=== PATIENT | female | born 1960 | race African-American/Black ===

== ENCOUNTER 2017-07-15 09:42 | Emergency (ER) | payer MEDICAID ==
[~2017-07-15] VITALS: Ht 165.1 cm; Wt 71.0 kg
[~2017-07-15 09:42] MED LIST: CARB200T PO; DIVA-18 PO; DIVA500T3 PO; FOLI-43 PO; KETO5DRO80 EACHEYE; LACO200T2 PO; LEVO500T2 PO; PRED5DRO7 EACHEYE; TEGXR2 PO
[2017-07-15] MEDS ORDERED: LACTATED RINGERS 1,000 ML IV STA (10:25)
[2017-07-15] MEDS ORDERED: ONDANSETRON HCL 4MG/2ML VIAL IV STA (10:25)
[2017-07-15 10:56] LABS: CLARITY URINE CLEAR (CLEAR); COLOR URINE YELLOW (YELLOW); GLUCOSE URINE NEGATIVE (NEGATIVE); KETONES URINE NEGATIVE (NEGATIVE); LEUKOCYTE ESTERASE URINE 1+ (NEGATIVE); NITRITE URINE NEGATIVE (NEGATIVE); OCCULT BLOOD URINE NEGATIVE (NEGATIVE); PROTEIN URINE TRACE (NEGATIVE); SPECIFIC GRAVITY URINE 1.034 (1.005-1.030); UROBILINOGEN URINE 0.2 E.U./dL (0.2-1.0)
[2017-07-15 12:09] LABS: INR 1.2; PROTHROMBIN TIME 12.1 sec (9.4-11.6)
[2017-07-15 12:15] LABS: CARBON DIOXIDE 25 mEq/L (21-32); CHLORIDE 106 mEq/L (98-107)
[2017-07-15 12:51] LABS: BASOPHILS % 0.4 % (0.0-2.0); EOSINOPHILS % 0.8 % (0.0-5.0); HEMATOCRIT. 36.4 % (36.0-48.0); HEMOGLOBIN. 12.1 g/dL (12.0-16.0); LYMPHOCYTES % 22.3 % (20.0-50.0); MEAN CORPUSCULAR HEMOGLOBIN 30.7 pg (28.0-32.0); MEAN CORPUSCULAR VOLUME 92.4 fL (81.0-99.0); MEAN PLATELET VOLUME 9.4 fl (7.4-10.4); MONOCYTES % 4.7 % (2.0-8.0); NEUTROPHILS % 71.8 % (40.0-76.0); PLATELET 191 x1000/uL (130-400); RED BLOOD CELL COUNT 3.94 mill/uL (4.2-5.4)
[2017-07-15] MEDS ORDERED: PROCHLORPERAZINE 10MG/2ML VIAL IV STA (12:54)
[2017-07-15 14:02] VITALS: BP 104/58
== END 2017-07-15 14:17 | disposition home or self-care (01) ==
LOC: ER 10:45
DX: R10.13 Epigastric pain (principal); R11.2 Nausea with vomiting, unspecified; I69.354 Hemiplegia and hemiparesis following cerebral infarction affecting left non-dominant side; G40.909 Epilepsy, unspecified, not intractable, without status epilepticus; E78.00 Pure hypercholesterolemia, unspecified; Z88.6 Allergy status to analgesic agent
CPT/HCPCS: 36415; 70450; 80053; 81001; 83605; 83690; 85025; 85610; 93005; 96361; 96374; 96375; 99285; J0780; J2405; J7120; Z7610

== ENCOUNTER 2018-10-14 10:21 | Emergency (ER) | payer MEDICAID ==
[~2018-10-14] VITALS: Ht 160 cm; Wt 62.0 kg
[2018-10-14] MEDS ORDERED: IBUPROFEN 600MG TABLET PO ONE (15:00)
[2018-10-14 15:11] VITALS: BP 105/59
== END 2018-10-14 16:56 | disposition home or self-care (01) ==
LOC: ER 10:21
DX: S62.394A Other fracture of fourth metacarpal bone, right hand, initial encounter for closed fracture (principal); W01.0XXA Fall on same level from slipping, tripping and stumbling without subsequent striking against object, initial encounter; Y93.89 Activity, other specified; Y92.89 Other specified places as the place of occurrence of the external cause
CPT/HCPCS: 29125; 73130; 99283

== ENCOUNTER 2019-05-20 14:42 | Inpatient (IN) | payer MEDICAID ==
[~2019-05-20] VITALS: Ht 215.9 cm; Wt 72.6 kg
[2019-05-20] MEDS ORDERED: SODIUM CHLORIDE 0.9% 1,000 ML IV ONE (15:26)
[2019-05-20 15:38] LABS: BASOPHILS % 0.6 % (0.0-2.0); EOSINOPHILS % 9.1 % (0.0-5.0); HEMATOCRIT. 34.9 % (36.0-48.0); HEMOGLOBIN. 11.6 g/dL (12.0-16.0); MEAN CORPUSCULAR VOLUME 93.2 fL (81.0-99.0); MEAN PLATELET VOLUME 9.4 fl (7.4-10.4); MONOCYTES % 9.9 % (2.0-8.0); NEUTROPHILS % 37.4 % (40.0-76.0); PLATELET 206 x1000/uL (130-400); RED BLOOD CELL COUNT 3.74 mill/uL (4.2-5.4)
[2019-05-20 15:41] LABS: CLARITY URINE CLOUDY (CLEAR); COLOR URINE YELLOW (YELLOW); KETONES URINE TRACE (NEGATIVE); LEUKOCYTE ESTERASE URINE 1+ (NEGATIVE); NITRITE URINE NEGATIVE (NEGATIVE); OCCULT BLOOD URINE TRACE (NEGATIVE); PH URINE 5.5 (4.5-8.0); PROTEIN URINE 1+ (NEGATIVE); SPECIFIC GRAVITY URINE 1.027 (1.005-1.030)
[2019-05-20 15:42] LABS: CHLORIDE 105 mEq/L (98-107)
[2019-05-20 15:44] LABS: INR 1.1; PARTIAL THROMBOPLASTIN TIME 27.2 sec (23.4-31.0); PROTHROMBIN TIME 11.5 sec (9.6-11.0)
[2019-05-20 15:46] LABS: ETHANOL BLOOD < 10 mg/dL
[2019-05-20 15:51] LABS: CARBAMAZEPINE 2.3 ug/mL (4-12)
[2019-05-20 15:59] LABS: *AMPHETAMINES SCREEN URINE NEGATIVE (NEGATIVE); *BARBITURATES SCREEN URINE NEGATIVE (NEGATIVE); *BENZODIAZEPINES SCREEN URINE NEGATIVE (NEGATIVE); *COCAINE SCREEN URINE NEGATIVE (NEGATIVE)
[2019-05-20 16:00] LABS: CANNABINOID URINE SCREEN NEGATIVE (NEGATIVE); METHADONE URINE SCREEN NEGATIVE (NEGATIVE); OPIATES URINE SCREEN NEGATIVE (NEGATIVE); PHENCYCLIDINE URINE SCREEN NEGATIVE (NEGATIVE)
[2019-05-20] MEDS ORDERED: VALPROATE SODIUM 500 MG in SODIUM CHLORIDE 0.9% 100 ML IV STA (16:23)
[2019-05-20] MEDS ORDERED: CEFTRIAXONE 1 G PREMIX 50 ML IV ONE (16:30)
[2019-05-20] MEDS ORDERED: CARBAMAZEPINE 100MG TABLET CHEW PO ONE (16:30)
[2019-05-20] MEDS ORDERED: ASPIRIN 81MG TABLET PO ONE (17:00)
[2019-05-20] MEDS ORDERED: NON FORMULARY PATIENT HOME MED XX SCH (20:00)
[2019-05-20] MEDS ORDERED: LORAZEPAM 2MG/ML CPJ IV PRN (20:00)
[2019-05-20] MEDS ORDERED: DIPHENHYDRAMINE 50MG/ML VIAL IV PRN (20:00)
[2019-05-20 22:10] VITALS: BP 104/60
[2019-05-20] MEDS: CARBAMAZEPINE 200MG TABLET PO SCH (23:35)
[2019-05-20] MEDS: DIVALPROEX SODIUM 250MG DR TABLET PO SCH (23:35)
[2019-05-21 04:00] VITALS: BP 123/49
[2019-05-21] MEDS ORDERED: SODIUM CHLORIDE 0.9% INJ 3ML FLUSH IVF SCH (06:00)
[2019-05-21] MEDS ORDERED: ACETAMINOPHEN 325MG TABLET PO PRN (08:15)
[2019-05-21 08:27] VITALS: BP 119/50
[2019-05-21] MEDS: DIVALPROEX SODIUM 250MG DR TABLET PO SCH (08:27)
[2019-05-21] MEDS: CARBAMAZEPINE 200MG TABLET PO SCH (08:27)
[2019-05-21 12:00] VITALS: BP 121/57
[2019-05-21 15:51] VITALS: BP 94/50
[2019-05-21 16:00] VITALS: BP 94/50
== END 2019-05-21 16:53 | disposition home or self-care (01) | DRG 53 ==
LOC: ER 14:42 → ENRESERV 20:34 → 8WST 22:06
PROVIDERS: ADMIT Internal Medicine; ATTEND Internal Medicine
DX: G40.909 Epilepsy, unspecified, not intractable, without status epilepticus (principal); I69.354 Hemiplegia and hemiparesis following cerebral infarction affecting left non-dominant side; H40.9 Unspecified glaucoma; Z88.5 Allergy status to narcotic agent; Z88.8 Allergy status to other drugs, medicaments and biological substances; Z79.899 Other long term (current) drug therapy
CPT/HCPCS: 36415; 71045; 80156; 80165; 80305; 80320; 83880; 84484; 93005; 96374; 99285; J0696; J3490; J7030; J7050; G0480

== ENCOUNTER 2020-01-02 17:54 | Inpatient (IN) | payer MEDICAID ==
[~2020-01-02] VITALS: Ht 160 cm; Wt 59.9 kg
[2020-01-02] MEDS ORDERED: VALPROIC ACID 250MG CAPSULE PO ONE (23:15)
[2020-01-03 00:42] LABS: BASOPHILS % 0.7 % (0.0-2.0); EOSINOPHILS % 2.7 % (0.0-5.0); MEAN CORPUSCULAR HEMOGLOBIN 31.8 pg (28.0-32.0); MEAN CORPUSCULAR VOLUME 92.8 fL (81.0-99.0); MEAN PLATELET VOLUME 9.8 fl (7.4-10.4); MONOCYTES % 8.9 % (2.0-8.0); NEUTROPHILS % 44.7 % (40.0-76.0); PLATELET 239 x1000/uL (130-400); RED BLOOD CELL COUNT 3.77 mill/uL (4.2-5.4); RED CELL DISTRIBUTION WIDTH 14.1 % (11.6-14.6)
[2020-01-03 00:53] LABS: CHLORIDE 104 mEq/L (98-107)
[2020-01-03 00:57] LABS: ETHANOL BLOOD < 10 mg/dL
[2020-01-03 04:26] LABS: CLARITY URINE CLEAR (CLEAR); COLOR URINE YELLOW (YELLOW); KETONES URINE NEGATIVE (NEGATIVE); LEUKOCYTE ESTERASE URINE 1+ (NEGATIVE); NITRITE URINE NEGATIVE (NEGATIVE); OCCULT BLOOD URINE NEGATIVE (NEGATIVE); PH URINE 6.5 (4.5-8.0); PROTEIN URINE NEGATIVE (NEGATIVE); SPECIFIC GRAVITY URINE 1.033 (1.005-1.030)
[2020-01-03 04:48] LABS: *AMPHETAMINES SCREEN URINE NEGATIVE (NEGATIVE); *BARBITURATES SCREEN URINE NEGATIVE (NEGATIVE)
[2020-01-03 04:49] LABS: *BENZODIAZEPINES SCREEN URINE NEGATIVE (NEGATIVE); *COCAINE SCREEN URINE NEGATIVE (NEGATIVE); CANNABINOID URINE SCREEN NEGATIVE (NEGATIVE); METHADONE URINE SCREEN NEGATIVE (NEGATIVE); OPIATES URINE SCREEN NEGATIVE (NEGATIVE); PHENCYCLIDINE URINE SCREEN NEGATIVE (NEGATIVE)
[2020-01-03] MEDS ORDERED: IOHEXOL-350 100 ML BOTTLE ONE ×2 (07:29→09:54)
[2020-01-03] MEDS ORDERED: LORAZEPAM 2MG/ML CPJ ONE (09:09)
[2020-01-03] MEDS ORDERED: LEVETIRACETAM 1000MG/100ML 100 ML IV ONE (09:15)
[2020-01-03] MEDS ORDERED: LORAZEPAM 2MG/ML CPJ IV ONE (09:15)
[2020-01-03] MEDS ORDERED: NON FORMULARY PATIENT HOME MED XX SCH (14:00)
[2020-01-03] MEDS: VALPROIC ACID 250MG CAPSULE PO SCH (15:22)
[2020-01-03] MEDS ORDERED: ACETAMINOPHEN 325MG TABLET PO PRN (20:58)
[2020-01-03] MEDS ORDERED: LEVETIRACETAM 500 MG in SODIUM CHLORIDE 0.9% 100 ML IV SCH (21:00)
[2020-01-03 22:52] VITALS: BP 108/48
[2020-01-04] VITALS: BP 108/48
[2020-01-04] MEDS: CARBAMAZEPINE 200MG TABLET PO SCH ×3 (00:03→22:05)
[2020-01-04] MEDS: VALPROIC ACID 250MG CAPSULE PO SCH ×4 (00:46→22:05)
[2020-01-04 04:00] VITALS: BP 95/53
[2020-01-04] MEDS: LEVETIRACETAM 500MG PREMIX 100 ML IV SCH ×3 (05:31→22:37)
[2020-01-04 08:00] VITALS: BP 108/47
[2020-01-04] MEDS: VIMPAT 200 MG PO SCH ×2 (08:42→16:04)
[2020-01-04 12:00] VITALS: BP 105/52
[2020-01-04 16:00] VITALS: BP 132/54
[2020-01-04 16:03] LABS: BASOPHILS % 0.6 % (0.0-2.0); EOSINOPHILS % 5.4 % (0.0-5.0); LYMPHOCYTES % 36.7 % (20.0-50.0); MEAN CORPUSCULAR HEMOGLOBIN 31.7 pg (28.0-32.0); MEAN CORPUSCULAR VOLUME 92.8 fL (81.0-99.0); MEAN PLATELET VOLUME 9.8 fl (7.4-10.4); MONOCYTES % 10.5 % (2.0-8.0); NEUTROPHILS % 46.8 % (40.0-76.0); PLATELET 243 x1000/uL (130-400); RED BLOOD CELL COUNT 3.77 mill/uL (4.2-5.4); RED CELL DISTRIBUTION WIDTH 13.8 % (11.6-14.6)
[2020-01-04 16:30] LABS: CHLORIDE 106 mEq/L (98-107)
[2020-01-04 20:00] VITALS: BP 121/72
[2020-01-05] VITALS: BP 107/58
[2020-01-05 04:00] VITALS: BP 106/61
[2020-01-05] MEDS: VALPROIC ACID 250MG CAPSULE PO SCH ×2 (05:43→13:30)
[2020-01-05] MEDS: CARBAMAZEPINE 200MG TABLET PO SCH (08:43)
[2020-01-05] MEDS: LEVETIRACETAM 500MG PREMIX 100 ML IV SCH (08:44)
[2020-01-05] MEDS: VIMPAT 200 MG PO SCH (08:53)
[2020-01-05 14:55] VITALS: BP 124/62
== END 2020-01-05 16:22 | disposition home or self-care (01) | DRG 53 ==
LOC: ER 17:54 → EDBEDREQSVC 01-03 16:45 → SUPCPDRO 01-03 16:46 → ENRESERV 01-03 21:17 → 7WST 01-03 22:24
PROVIDERS: ADMIT Internal Medicine; ATTEND Internal Medicine
DX: G40.909 Epilepsy, unspecified, not intractable, without status epilepticus (principal); I69.354 Hemiplegia and hemiparesis following cerebral infarction affecting left non-dominant side; I10 Essential (primary) hypertension; Z91.14 Patient's other noncompliance with medication regimen; Z79.899 Other long term (current) drug therapy; Z98.49 Cataract extraction status, unspecified eye
CPT/HCPCS: 36415; 70496; 70498; 70551; 71045; 80053; 80165; 80305; 80320; 81003; 82962; 83880; 84484; 85025; 93005; 96365; 96375; 99285; J1953; J2060; Q9967; G0480

== ENCOUNTER 2020-06-12 12:46 | Inpatient (IN) | payer MEDICAID ==
[~2020-06-12] VITALS: Ht 160 cm; Wt 79.4 kg
[2020-06-12] MEDS ORDERED: SODIUM CHLORIDE 0.9% 1,000 ML IV ONE (14:44)
[2020-06-12] MEDS ORDERED: LORAZEPAM 2MG/ML CPJ IV ONE (14:45)
[2020-06-12] MEDS ORDERED: MECLIZINE 12.5MG TABLET PO ONE (14:45)
[2020-06-12 17:06] LABS: BASOPHILS % 0.8 % (0.0-2.0); EOSINOPHILS % 2.5 % (0.0-5.0); HEMATOCRIT. 36.1 % (36.0-48.0); HEMOGLOBIN. 11.7 g/dL (12.0-16.0); LYMPHOCYTES % 40.4 % (20.0-50.0); MEAN CORPUSCULAR HEMOGLOBIN 30.1 pg (28.0-32.0); MEAN CORPUSCULAR VOLUME 92.8 fL (81.0-99.0); MEAN PLATELET VOLUME 10.6 fl (7.4-10.4); MONOCYTES % 7.7 % (2.0-8.0); NEUTROPHILS % 48.6 % (40.0-76.0); PLATELET 116 x1000/uL (130-400); RED BLOOD CELL COUNT 3.89 mill/uL (4.2-5.4); RED CELL DISTRIBUTION WIDTH 14.4 % (11.6-14.6)
[2020-06-12 17:12] LABS: CHLORIDE 106 mEq/L (98-107)
[2020-06-12 17:17] LABS: INR 1.2; PROTHROMBIN TIME 12.2 sec (9.6-11.0)
[2020-06-12 18:14] LABS: CLARITY URINE CLEAR (CLEAR); COLOR URINE DARK YELLOW (YELLOW); KETONES URINE 1+ (NEGATIVE); LEUKOCYTE ESTERASE URINE TRACE (NEGATIVE); NITRITE URINE NEGATIVE (NEGATIVE); OCCULT BLOOD URINE NEGATIVE (NEGATIVE); PROTEIN URINE TRACE (NEGATIVE); SPECIFIC GRAVITY URINE 1.031 (1.005-1.030)
[2020-06-12 18:23] LABS: *AMPHETAMINES SCREEN URINE NEGATIVE (NEGATIVE); *BARBITURATES SCREEN URINE NEGATIVE (NEGATIVE); *BENZODIAZEPINES SCREEN URINE NEGATIVE (NEGATIVE); *COCAINE SCREEN URINE NEGATIVE (NEGATIVE)
[2020-06-12 18:24] LABS: CANNABINOID URINE SCREEN NEGATIVE (NEGATIVE); METHADONE URINE SCREEN NEGATIVE (NEGATIVE); OPIATES URINE SCREEN NEGATIVE (NEGATIVE); PHENCYCLIDINE URINE SCREEN NEGATIVE (NEGATIVE)
[2020-06-12 21:50] VITALS: BP 125/65
[2020-06-12] MEDS ORDERED: NON FORMULARY PATIENT HOME MED XX SCH (23:00)
[2020-06-12] MEDS ORDERED: LORAZEPAM 2MG/ML CPJ IV PRN (23:30)
[2020-06-12] MEDS ORDERED: ONDANSETRON HCL 4MG/2ML INJ IV PRN (23:30)
[2020-06-12] MEDS ORDERED: ACETAMINOPHEN 325MG TABLET PO PRN (23:30)
[2020-06-13] VITALS: BP 119/77
[2020-06-13 04:00] VITALS: BP 99/41
[2020-06-13 07:45] LABS: HEMATOCRIT 30.9 % (36.0-48.0); HEMOGLOBIN 10.4 g/dL (12.0-16.0); MEAN CORPUSCULAR HEMOGLOBIN 31.1 pg (28.0-32.0); PLATELET 185 x1000/uL (130-400); RED BLOOD CELL COUNT 3.35 mill/uL (4.2-5.4); RED CELL DISTRIBUTION WIDTH 13.8 % (11.6-14.6)
[2020-06-13 08:00] VITALS: BP 124/84
[2020-06-13 08:03] LABS: CHLORIDE 109 mEq/L (98-107)
[2020-06-13] MEDS: CARBAMAZEPINE 200MG TABLET PO SCH ×2 (08:37→17:18)
[2020-06-13] MEDS: PREDNISOLONE ACETATE 1% OPHTH DROPS 5ML EACHEYE SCH ×4 (08:37→20:20)
[2020-06-13] MEDS: FOLIC ACID 1MG TABLET PO SCH (08:37)
[2020-06-13] MEDS ORDERED: KETOROLAC TROMETHAMINE 0.4% OPHTH 5ML EACHEYE SCH (09:00)
[2020-06-13] MEDS ORDERED: POTASSIUM CHLORIDE 20MEQ TABLET SR PO SCH (09:15)
[2020-06-13] MEDS ORDERED: MECLIZINE 25MG TABLET PO PRN (09:15)
[2020-06-13] MEDS: DIVALPROEX SODIUM 500MG DR TABLET PO SCH ×2 (10:10→17:18)
[2020-06-13 12:00] VITALS: BP_SYST 122; BP_SYST 126; BP_DIAS 66; BP_DIAS 75
[2020-06-13 16:00] VITALS: BP 113/50
[2020-06-13 20:00] VITALS: BP 114/68
[2020-06-14] VITALS: BP 121/60
[2020-06-14 04:00] VITALS: BP 116/59
[2020-06-14 06:57] LABS: BASOPHILS % 0.8 % (0.0-2.0); EOSINOPHILS % 8.8 % (0.0-5.0); HEMATOCRIT. 31.1 % (36.0-48.0); HEMOGLOBIN. 10.5 g/dL (12.0-16.0); LYMPHOCYTES % 48.9 % (20.0-50.0); MEAN CORPUSCULAR HEMOGLOBIN 30.9 pg (28.0-32.0); MEAN CORPUSCULAR VOLUME 91.8 fL (81.0-99.0); MEAN PLATELET VOLUME 10.1 fl (7.4-10.4); NEUTROPHILS % 33.5 % (40.0-76.0); PLATELET 182 x1000/uL (130-400); RED BLOOD CELL COUNT 3.38 mill/uL (4.2-5.4)
[2020-06-14 07:03] LABS: CHLORIDE 107 mEq/L (98-107)
[2020-06-14 08:00] VITALS: BP 109/63
[2020-06-14] MEDS ORDERED: CLOPIDOGREL 75MG TABLET PO SCH (09:00)
[2020-06-14] MEDS ORDERED: ENOXAPARIN 40MG/0.4ML SYR SUBCUT SCH (09:00)
[2020-06-14] MEDS: FOLIC ACID 1MG TABLET PO SCH (09:32)
[2020-06-14] MEDS: CARBAMAZEPINE 200MG TABLET PO SCH ×2 (09:32→17:23)
[2020-06-14] MEDS: PREDNISOLONE ACETATE 1% OPHTH DROPS 5ML EACHEYE SCH ×4 (09:33→20:13)
[2020-06-14] MEDS: DIVALPROEX SODIUM 500MG DR TABLET PO SCH ×2 (10:21→17:23)
[2020-06-14 12:02] VITALS: BP 102/46
[2020-06-14] MEDS ORDERED: LACTULOSE 20G/30ML UDC PO NR (14:15)
[2020-06-14 16:00] VITALS: BP 118/67
[2020-06-14 20:00] VITALS: BP 116/66
[2020-06-14] MEDS: ATORVASTATIN CALCIUM 40MG TABLET PO SCH (20:13)
[2020-06-14] MEDS: DEXAMETHASONE 4MG/ML 1ML VIAL IV SCH (22:09)
[2020-06-15] VITALS: BP 114/59
[2020-06-15] MEDS: DEXAMETHASONE 4MG/ML 1ML VIAL IV SCH ×4 (03:01→21:10)
[2020-06-15 04:00] VITALS: BP 103/57
[2020-06-15] MEDS ORDERED: REGADENOSON 0.4 MG/5 ML IV SCH (09:00)
[2020-06-15 12:00] VITALS: BP 117/64
[2020-06-15] MEDS: FOLIC ACID 1MG TABLET PO SCH (13:58)
[2020-06-15] MEDS: DIVALPROEX SODIUM 500MG DR TABLET PO SCH ×2 (13:59→18:11)
[2020-06-15] MEDS: CARBAMAZEPINE 200MG TABLET PO SCH ×2 (13:59→18:11)
[2020-06-15] MEDS: PREDNISOLONE ACETATE 1% OPHTH DROPS 5ML EACHEYE SCH ×3 (14:00→21:10)
[2020-06-15 20:00] VITALS: BP 109/61
[2020-06-15] MEDS ORDERED: DEXAMETHASONE 4MG/ML 1ML VIAL IV SCH (21:00)
[2020-06-15] MEDS: ATORVASTATIN CALCIUM 40MG TABLET PO SCH (21:10)
[2020-06-16] VITALS: BP 101/68
[2020-06-16] MEDS: DEXAMETHASONE 4MG/ML 1ML VIAL IV SCH ×4 (02:49→20:52)
[2020-06-16 03:58] VITALS: BP 128/59
[2020-06-16 06:52] LABS: BASOPHILS % 0.1 % (0.0-2.0); HEMATOCRIT. 31.8 % (36.0-48.0); HEMOGLOBIN. 10.7 g/dL (12.0-16.0); LYMPHOCYTES % 11.3 % (20.0-50.0); MEAN CORPUSCULAR HEMOGLOBIN 30.8 pg (28.0-32.0); MEAN CORPUSCULAR VOLUME 91.9 fL (81.0-99.0); MEAN PLATELET VOLUME 9.8 fl (7.4-10.4); MONOCYTES % 3.1 % (2.0-8.0); NEUTROPHILS % 85.5 % (40.0-76.0); PLATELET 199 x1000/uL (130-400); RED BLOOD CELL COUNT 3.46 mill/uL (4.2-5.4); RED CELL DISTRIBUTION WIDTH 14.3 % (11.6-14.6)
[2020-06-16 07:04] LABS: CHLORIDE 105 mEq/L (98-107)
[2020-06-16 08:00] VITALS: BP 116/69
[2020-06-16] MEDS: FOLIC ACID 1MG TABLET PO SCH (08:25)
[2020-06-16] MEDS: DIVALPROEX SODIUM 500MG DR TABLET PO SCH ×2 (08:25→16:02)
[2020-06-16] MEDS: PREDNISOLONE ACETATE 1% OPHTH DROPS 5ML EACHEYE SCH ×4 (08:26→21:03)
[2020-06-16] MEDS: CARBAMAZEPINE 200MG TABLET PO SCH ×2 (08:30→16:02)
[2020-06-16] MEDS ORDERED: REGADENOSON 0.4 MG/5 ML IV ONE (09:20)
[2020-06-16 12:00] VITALS: BP 106/65
[2020-06-16 16:00] VITALS: BP_SYST 113; BP_SYST 167; BP_DIAS 49; BP_DIAS 64
[2020-06-16 20:00] VITALS: BP 106/50
[2020-06-16] MEDS: ATORVASTATIN CALCIUM 40MG TABLET PO SCH (20:52)
[2020-06-17] VITALS: BP 103/56
[2020-06-17] MEDS: DEXAMETHASONE 4MG/ML 1ML VIAL IV SCH ×4 (03:38→21:11)
[2020-06-17 04:00] VITALS: BP 100/77
[2020-06-17 08:00] VITALS: BP 116/63
[2020-06-17] MEDS: DIVALPROEX SODIUM 500MG DR TABLET PO SCH ×2 (08:56→16:14)
[2020-06-17] MEDS: CARBAMAZEPINE 200MG TABLET PO SCH ×2 (08:56→16:14)
[2020-06-17] MEDS: FOLIC ACID 1MG TABLET PO SCH (08:56)
[2020-06-17] MEDS: PREDNISOLONE ACETATE 1% OPHTH DROPS 5ML EACHEYE SCH ×4 (08:57→21:11)
[2020-06-17 12:00] VITALS: BP 129/86
[2020-06-17 16:00] VITALS: BP 129/76
[2020-06-17 20:00] VITALS: BP 109/85
[2020-06-17] MEDS: ATORVASTATIN CALCIUM 40MG TABLET PO SCH (21:11)
[2020-06-18] VITALS (44 sets, daily range): BP systolic 89–142; BP diastolic 51–80
[2020-06-18] MEDS: DEXAMETHASONE 4MG/ML 1ML VIAL IV SCH ×4 (03:57→20:04)
[2020-06-18] MEDS ORDERED: BACITRACIN 50,000 UNITS/VIAL ONE (09:19)
[2020-06-18] MEDS ORDERED: LIDOCAINE HCL/EPINEPHRINE 1%-EPI 1:100,000 20 ML VIAL ONE (09:19)
[2020-06-18] MEDS ORDERED: NORMAL SALINE 0.9% 10 ML SYR ONE (09:19)
[2020-06-18] MEDS ORDERED: THROMBIN (BOVINE) 5000 UNITS/VIAL TOP ONE (09:19)
[2020-06-18] MEDS: DIVALPROEX SODIUM 500MG DR TABLET PO SCH ×2 (09:26→17:29)
[2020-06-18] MEDS: CARBAMAZEPINE 200MG TABLET PO SCH ×2 (09:26→17:29)
[2020-06-18] MEDS: FOLIC ACID 1MG TABLET PO SCH (09:26)
[2020-06-18] MEDS: PREDNISOLONE ACETATE 1% OPHTH DROPS 5ML EACHEYE SCH ×4 (09:27→20:04)
[2020-06-18] MEDS ORDERED: SODIUM BICARBONATE 4% (2.4MEQ) 5ML VIAL IV ONE (10:59)
[2020-06-18] MEDS ORDERED: LIDOCAINE HCL 1% 20ML VIAL (Pyxis) INJ ONE (10:59)
[2020-06-18] MEDS ORDERED: VECURONIUM BROMIDE 10 MG/VIAL IV ONE ×2 (11:56→14:06)
[2020-06-18] MEDS ORDERED: DEXAMETHASONE 4MG/ML 1ML VIAL ONE (12:07)
[2020-06-18] MEDS ORDERED: CEFAZOLIN SODIUM 1000MG/VIAL ONE (12:07)
[2020-06-18] MEDS ORDERED: GLYCOPYRROLATE 0.2 MG/ML 2ML VIAL ONE (12:10)
[2020-06-18] MEDS ORDERED: HYDROMORPHONE HCL/PF 2MG/ML (OR) ONE (12:35)
[2020-06-18] MEDS ORDERED: HYDRALAZINE 20MG/ML VIAL ONE ×2 (12:58→14:06)
[2020-06-18] MEDS ORDERED: ALBUMIN HUMAN 12.5G/250ML (5%) IV ONE (13:12)
[2020-06-18] MEDS ORDERED: NICARDIPINE 100 MG in SODIUM CHLORIDE 0.9% 60 ML IV PRN (14:00)
[2020-06-18] MEDS ORDERED: MORPHINE SULFATE 4 MG/ML CPJ (NOT FOR IM USE) IV PRN (14:00)
[2020-06-18] MEDS ORDERED: CEFAZOLIN SODIUM 1000MG/VIAL IV SCH (14:00)
[2020-06-18] MEDS: DEXT 5%/LACTATED RINGERS 1,000 ML IV SCH (14:46)
[2020-06-18] MEDS ORDERED: NALOXONE INJ IV PRN (15:00)
[2020-06-18] MEDS ORDERED: DIPHENHYDRAMINE INJ IV PRN (15:00)
[2020-06-18] MEDS ORDERED: HYDROMORPHONE PCA 10MG/50ML IV PRN (15:00)
[2020-06-18] MEDS: PANTOPRAZOLE SODIUM 40 MG/VIAL IV SCH (16:07)
[2020-06-18] MEDS: CEFAZOLIN 1000MG PREMIX 50 ML IV SCH (19:54)
[2020-06-18] MEDS: ATORVASTATIN CALCIUM 40MG TABLET PO SCH (20:04)
[2020-06-18] MEDS: ONDANSETRON INJ IV PRN (22:12)
[2020-06-19] VITALS (62 sets, daily range): BP systolic 83–189; BP diastolic 45–175
[2020-06-19] MEDS: DEXT 5%/LACTATED RINGERS 1,000 ML IV SCH ×3 (00:37→21:01)
[2020-06-19] MEDS: DEXAMETHASONE 4MG/ML 1ML VIAL IV SCH ×4 (02:14→20:58)
[2020-06-19] MEDS: CEFAZOLIN 1000MG PREMIX 50 ML IV SCH ×3 (04:55→20:57)
[2020-06-19] MEDS: PANTOPRAZOLE SODIUM 40 MG/VIAL IV SCH (09:34)
[2020-06-19] MEDS: PREDNISOLONE ACETATE 1% OPHTH DROPS 5ML EACHEYE SCH ×4 (09:34→20:59)
[2020-06-19] MEDS: FOLIC ACID 1MG TABLET PO SCH (09:35)
[2020-06-19] MEDS: CARBAMAZEPINE 200MG TABLET PO SCH ×2 (09:35→17:23)
[2020-06-19] MEDS: DIVALPROEX SODIUM 500MG DR TABLET PO SCH ×2 (09:35→17:23)
[2020-06-19] MEDS: ONDANSETRON INJ IV PRN (11:11)
[2020-06-19] MEDS: ATORVASTATIN CALCIUM 40MG TABLET PO SCH (20:59)
[2020-06-19] MEDS ORDERED: HYDRALAZINE 20MG/ML VIAL IV PRN (22:30)
[2020-06-19] MEDS ORDERED: HYDRALAZINE 5 MG in SODIUM CHLORIDE 0.9% 49.75 ML IV PRN (22:30)
[2020-06-20] VITALS: BP 161/87
[2020-06-20 04:00] VITALS: BP 148/78
[2020-06-20] MEDS: CEFAZOLIN 1000MG PREMIX 50 ML IV SCH ×2 (04:31→12:32)
[2020-06-20] MEDS: DEXAMETHASONE 4MG/ML 1ML VIAL IV SCH ×4 (04:31→20:14)
[2020-06-20 08:00] VITALS: BP 136/79
[2020-06-20] MEDS: DIVALPROEX SODIUM 500MG DR TABLET PO SCH ×2 (08:46→18:10)
[2020-06-20] MEDS: CARBAMAZEPINE 200MG TABLET PO SCH ×2 (08:46→18:10)
[2020-06-20] MEDS: PREDNISOLONE ACETATE 1% OPHTH DROPS 5ML EACHEYE SCH ×4 (08:46→20:14)
[2020-06-20] MEDS: FOLIC ACID 1MG TABLET PO SCH (08:46)
[2020-06-20] MEDS: PANTOPRAZOLE SODIUM 40 MG/VIAL IV SCH (08:46)
[2020-06-20 12:00] VITALS: BP 145/79
[2020-06-20] MEDS: DOCUSATE SODIUM 250MG CAPSULE PO SCH (14:19)
[2020-06-20] MEDS ORDERED: ONDANSETRON HCL 4MG/2ML INJ IV PRN (14:45)
[2020-06-20] MEDS ORDERED: ONDANSETRON HCL 4MG/2ML INJ IV NR (14:45)
[2020-06-20 16:00] VITALS: BP 173/93
[2020-06-20] MEDS: DEXT 5%/LACTATED RINGERS 1,000 ML IV SCH (16:00)
[2020-06-20] MEDS ORDERED: CLONIDINE 0.1MG TABLET PO PRN (18:00)
[2020-06-20] MEDS: AMLODIPINE 10MG TABLET PO SCH (18:10)
[2020-06-20 20:00] VITALS: BP 139/91
[2020-06-20] MEDS: ATORVASTATIN CALCIUM 40MG TABLET PO SCH (20:14)
[2020-06-20] MEDS: HYDROCODONE/ACETAMINOPHEN 10/325MG TABLET PO PRN (22:56)
[2020-06-21] VITALS: BP 126/86
[2020-06-21 04:00] VITALS: BP 127/85
[2020-06-21 08:00] VITALS: BP 137/70
[2020-06-21] MEDS: AMLODIPINE 10MG TABLET PO SCH (08:12)
[2020-06-21] MEDS: CARBAMAZEPINE 200MG TABLET PO SCH ×2 (08:12→16:22)
[2020-06-21] MEDS: FOLIC ACID 1MG TABLET PO SCH (08:12)
[2020-06-21] MEDS: DOCUSATE SODIUM 250MG CAPSULE PO SCH (08:12)
[2020-06-21] MEDS: DIVALPROEX SODIUM 500MG DR TABLET PO SCH ×2 (08:12→16:22)
[2020-06-21] MEDS: FAMOTIDINE 20MG/2ML VIAL IV SCH ×2 (08:13→20:10)
[2020-06-21] MEDS: HYDROCODONE/ACETAMINOPHEN 10/325MG TABLET PO PRN ×2 (08:13→20:19)
[2020-06-21] MEDS: DEXAMETHASONE 4MG/ML 1ML VIAL IV SCH ×3 (08:14→20:10)
[2020-06-21] MEDS: PREDNISOLONE ACETATE 1% OPHTH DROPS 5ML EACHEYE SCH ×4 (08:35→20:10)
[2020-06-21 12:00] VITALS: BP 127/78
[2020-06-21] MEDS ORDERED: DOCU250C14 PO (12:48)
[2020-06-21] MEDS ORDERED: AMLO10TA80 PO (12:48)
[2020-06-21] MEDS ORDERED: HYDR-4009 MT (12:48)
[2020-06-21] MEDS ORDERED: LIP40 PO (12:48)
[2020-06-21 20:00] VITALS: BP 148/82
[2020-06-21] MEDS: ATORVASTATIN CALCIUM 40MG TABLET PO SCH (20:10)
[2020-06-22] VITALS: BP 125/74
[2020-06-22] MEDS: DEXAMETHASONE 4MG/ML 1ML VIAL IV SCH ×4 (03:37→21:21)
[2020-06-22 04:00] VITALS: BP 133/74
[2020-06-22] MEDS: HYDROCODONE/ACETAMINOPHEN 10/325MG TABLET PO PRN ×2 (05:56→21:29)
[2020-06-22 08:00] VITALS: BP 129/74
[2020-06-22] MEDS: DEXT 5%/LACTATED RINGERS 1,000 ML IV SCH ×2 (08:00→18:00)
[2020-06-22] MEDS: FOLIC ACID 1MG TABLET PO SCH (08:27)
[2020-06-22] MEDS: DIVALPROEX SODIUM 500MG DR TABLET PO SCH ×2 (08:28→18:15)
[2020-06-22] MEDS: FAMOTIDINE 20MG/2ML VIAL IV SCH ×2 (08:28→21:21)
[2020-06-22] MEDS: AMLODIPINE 10MG TABLET PO SCH (08:28)
[2020-06-22] MEDS: DOCUSATE SODIUM 250MG CAPSULE PO SCH (08:28)
[2020-06-22] MEDS: CARBAMAZEPINE 200MG TABLET PO SCH ×2 (08:28→18:15)
[2020-06-22] MEDS: PREDNISOLONE ACETATE 1% OPHTH DROPS 5ML EACHEYE SCH ×4 (08:30→21:21)
[2020-06-22 12:00] VITALS: BP 117/75
[2020-06-22 16:00] VITALS: BP 109/69
[2020-06-22 20:00] VITALS: BP 148/91
[2020-06-22] MEDS: ATORVASTATIN CALCIUM 40MG TABLET PO SCH (21:21)
[2020-06-23] VITALS: BP 117/70
[2020-06-23] MEDS: DEXAMETHASONE 4MG/ML 1ML VIAL IV SCH ×2 (03:00→09:00)
[2020-06-23 04:00] VITALS: BP 125/57
[2020-06-23] MEDS: DEXT 5%/LACTATED RINGERS 1,000 ML IV SCH (05:57)
[2020-06-23 08:00] VITALS: BP 121/83
[2020-06-23] MEDS: DIVALPROEX SODIUM 500MG DR TABLET PO SCH (09:00)
[2020-06-23] MEDS: DOCUSATE SODIUM 250MG CAPSULE PO SCH (09:00)
[2020-06-23] MEDS: CARBAMAZEPINE 200MG TABLET PO SCH (09:00)
[2020-06-23] MEDS: FOLIC ACID 1MG TABLET PO SCH (09:00)
[2020-06-23] MEDS: FAMOTIDINE 20MG/2ML VIAL IV SCH (09:00)
[2020-06-23] MEDS: AMLODIPINE 10MG TABLET PO SCH (09:00)
[2020-06-23] MEDS: PREDNISOLONE ACETATE 1% OPHTH DROPS 5ML EACHEYE SCH (09:08)
[2020-06-23 09:58] VITALS: BP 113/55
== END 2020-06-23 11:07 | disposition home health service (06) | DRG 321 ==
LOC: ER 12:46 → EDBEDREQ 19:51 → EDBEDREQTM 19:51 → ENRESERV 20:30 → 8WST 21:53 → MICUNO 06-18 11:48 → 6EST 06-19 16:15
PROVIDERS: ADMIT Internal Medicine; ATTEND Internal Medicine
PROC: 0RG2071 Fusion of 2 or more Cervical Vertebral Joints with Autologous Tissue Substitute, Posterior Approach, Posterior Column, Open Approach (ICD-10-PCS; principal; 2020-06-18)
PROC: 4A10X4Z Monitoring of Central Nervous Electrical Activity, External Approach (ICD-10-PCS; 2020-06-18)
PROC: 00NW0ZZ Release Cervical Spinal Cord, Open Approach (ICD-10-PCS; 2020-06-18)
DX: M48.02 Spinal stenosis, cervical region (principal); M47.12 Other spondylosis with myelopathy, cervical region; G95.89 Other specified diseases of spinal cord; G90.8 Other disorders of autonomic nervous system; D64.9 Anemia, unspecified; G82.50 Quadriplegia, unspecified; E66.9 Obesity, unspecified; I10 Essential (primary) hypertension; W06.XXXA Fall from bed, initial encounter; I25.10 Atherosclerotic heart disease of native coronary artery without angina pectoris; I27.20 Pulmonary hypertension, unspecified; G81.94 Hemiplegia, unspecified affecting left nondominant side; G40.909 Epilepsy, unspecified, not intractable, without status epilepticus; S01.81XA Laceration without foreign body of other part of head, initial encounter; I36.1 Nonrheumatic tricuspid (valve) insufficiency; M54.12 Radiculopathy, cervical region; Y92.003 Bedroom of unspecified non-institutional (private) residence as the place of occurrence of the external cause; Z88.5 Allergy status to narcotic agent; Z88.8 Allergy status to other drugs, medicaments and biological substances; Z79.2 Long term (current) use of antibiotics; Z79.899 Other long term (current) drug therapy; Z86.73 Personal history of transient ischemic attack (TIA), and cerebral infarction without residual deficits; Y93.89 Activity, other specified; Y99.8 Other external cause status; Z86.79 Personal history of other diseases of the circulatory system; Z03.818 Encounter for observation for suspected exposure to other biological agents ruled out
CPT/HCPCS: 36415; 70551; 71045; 72040; 72141; 76000; 78452; 80048; 80053; 80061; 80305; 81003; 84484; 85025; 85027; 86850; 86900; 87635; 88304; 92610; 93005; 93017; 93306; 96374; 97110; 97116; 97162; 97164; 97166; 97530; 97535; 99291; A9500; C9113; J0360; J0690; J1100; J1170; J1650; J2060; J2405; J2785; J3490; J7030; J7121; J8597; P9041

== ENCOUNTER 2020-07-08 12:20 | Emergency (ER) | payer MEDICAID ==
[~2020-07-08] VITALS: Ht 160 cm; Wt 68.0 kg
[~2020-07-08 12:20] MED LIST changes: +AMLO10TA80 PO; -DIVA500T3 PO; +DOCU250C14 PO; +HYDR-4009 MT; -KETO5DRO80 EACHEYE; -LEVO500T2 PO; +LIP40 PO; -TEGXR2 PO
[2020-07-08 13:18] LABS: BASOPHILS % 0.5 % (0.0-2.0); EOSINOPHILS % 1.4 % (0.0-5.0); HEMATOCRIT. 34.5 % (36.0-48.0); HEMOGLOBIN. 11.5 g/dL (12.0-16.0); MEAN CORPUSCULAR HEMOGLOBIN 30.6 pg (28.0-32.0); MEAN PLATELET VOLUME 8.8 fl (7.4-10.4); MONOCYTES % 8.3 % (2.0-8.0); NEUTROPHILS % 73.8 % (40.0-76.0); PLATELET 285 x1000/uL (130-400); RED BLOOD CELL COUNT 3.75 mill/uL (4.2-5.4); RED CELL DISTRIBUTION WIDTH 14.5 % (11.6-14.6)
[2020-07-08 13:24] LABS: CHLORIDE 105 mEq/L (98-107)
[2020-07-08 13:28] LABS: INR 1.2; PROTHROMBIN TIME 12.2 sec (9.6-11.0)
[2020-07-08] MEDS ORDERED: LORAZEPAM 2MG/ML CPJ IV ONE (13:30)
[2020-07-08] MEDS ORDERED: LIDOCAINE HCL 1% 20ML VIAL (Pyxis) INJ ONE (13:43)
[2020-07-08] MEDS ORDERED: SODIUM BICARBONATE 4% (2.4MEQ) 5ML VIAL IV ONE (13:44)
[2020-07-08 14:08] LABS: CARBAMAZEPINE 12.7 ug/mL (4-12)
[2020-07-08] MEDS ORDERED: SODIUM CHLORIDE 0.9% 250 ML IV ONE (14:18)
[2020-07-08] MEDS ORDERED: ONDANSETRON HCL 4MG/2ML INJ IV ONE (14:45)
[2020-07-08] MEDS ORDERED: FENTANYL CITRATE/PF 50MCG/ML 2ML VIAL IV ONE (14:45)
[2020-07-08] MEDS ORDERED: IOHEXOL-300 100 ML BOTTLE ONE (15:05)
[2020-07-08 16:07] VITALS: BP 127/76
== END 2020-07-08 16:02 | disposition short-term general hospital (02) ==
LOC: ER 12:57
DX: S00.83XA Contusion of other part of head, initial encounter (principal); J93.83 Other pneumothorax; T42.1X5A Adverse effect of iminostilbenes, initial encounter; G40.909 Epilepsy, unspecified, not intractable, without status epilepticus; I25.10 Atherosclerotic heart disease of native coronary artery without angina pectoris; Z86.73 Personal history of transient ischemic attack (TIA), and cerebral infarction without residual deficits; Z98.1 Arthrodesis status; W06.XXXA Fall from bed, initial encounter; Y93.89 Activity, other specified; Y92.013 Bedroom of single-family (private) house as the place of occurrence of the external cause
CPT/HCPCS: 36415; 70450; 71045; 71260; 72125; 74177; 77012; 80053; 80156; 80165; 83690; 83880; 84484; 85025; 85610; 93005; 96361; 96374; 96375; 99285; C1769; J2405; J3010; J3490; J7050; Q9967; Z7610

== ENCOUNTER 2020-08-24 13:45 | Inpatient (IN) | payer MEDICAID ==
[~2020-08-24] VITALS: Ht 160 cm; Wt 57.7 kg
[2020-08-24 15:36] LABS: BASOPHILS % 0.9 % (0.0-2.0); EOSINOPHILS % 5.4 % (0.0-5.0); HEMATOCRIT. 39.4 % (36.0-48.0); HEMOGLOBIN. 12.9 g/dL (12.0-16.0); LYMPHOCYTES % 43.5 % (20.0-50.0); MEAN CORPUSCULAR HEMOGLOBIN 31.2 pg (28.0-32.0); MEAN PLATELET VOLUME 9.9 fl (7.4-10.4); MONOCYTES % 9.3 % (2.0-8.0); NEUTROPHILS % 40.9 % (40.0-76.0); PLATELET 253 x1000/uL (130-400); RED BLOOD CELL COUNT 4.15 mill/uL (4.2-5.4); RED CELL DISTRIBUTION WIDTH 15.5 % (11.6-14.6)
[2020-08-24 15:39] LABS: CHLORIDE 102 mEq/L (98-107)
[2020-08-24 15:41] LABS: INR 1.1; PROTHROMBIN TIME 11.4 sec (9.6-11.0)
[2020-08-24 16:20] LABS: CLARITY URINE CLOUDY (CLEAR); COLOR URINE YELLOW (YELLOW); KETONES URINE TRACE (NEGATIVE); LEUKOCYTE ESTERASE URINE 2+ (NEGATIVE); NITRITE URINE POSITIVE (NEGATIVE); OCCULT BLOOD URINE TRACE (NEGATIVE); PH URINE 6.5 (4.5-8.0); PROTEIN URINE NEGATIVE (NEGATIVE); SPECIFIC GRAVITY URINE 1.018 (1.005-1.030); UROBILINOGEN URINE 0.2 E.U./dL (0.2-1.0)
[2020-08-24] MEDS ORDERED: IOHEXOL-300 100 ML BOTTLE ONE (17:55)
[2020-08-24] MEDS ORDERED: CEFTRIAXONE 1 G PREMIX 50 ML IV ONE (18:15)
[2020-08-25 08:00] VITALS: BP 118/52
[2020-08-25 08:10] VITALS: BP 118/52
[2020-08-25] MEDS ORDERED: ONDANSETRON HCL 4MG/2ML INJ IV PRN (09:45)
[2020-08-25] MEDS ORDERED: CEFTRIAXONE 1 G PREMIX 50 ML IV SCH (09:45)
[2020-08-25 12:00] VITALS: BP 142/79
[2020-08-25] MEDS: CARBAMAZEPINE 200 MG PO SCH ×2 (12:28→20:19)
[2020-08-25] MEDS: CEFTRIAXONE 1,000 MG in DEXTROSE 5% WATER 50 ML IV SCH (12:29)
[2020-08-25] MEDS: VIMPAT 200 MG PO SCH ×2 (12:29→17:04)
[2020-08-25] MEDS: OMEPRAZOLE 20MG CAPSULE EXTENDED RELEASE PO SCH (12:29)
[2020-08-25 16:00] VITALS: BP 116/60
[2020-08-25] MEDS: DIVALPROEX SODIUM 500MG DR TABLET PO SCH ×2 (17:05→20:18)
[2020-08-25 20:00] VITALS: BP 120/76
[2020-08-25] MEDS: ACETAMINOPHEN 325MG TABLET PO PRN (20:19)
[2020-08-25] MEDS ORDERED: DIVALPROEX SODIUM 500MG ER TABLET PO SCH (21:00)
[2020-08-25] MEDS ORDERED: CARBAMAZEPINE 200MG TABLET PO SCH (21:00)
[2020-08-26] VITALS (7 sets, daily range): BP systolic 114–132; BP diastolic 56–81
[2020-08-26] MEDS: OMEPRAZOLE 20MG CAPSULE EXTENDED RELEASE PO SCH (06:32)
[2020-08-26] MEDS: ACETAMINOPHEN 325MG TABLET PO PRN (06:37)
[2020-08-26] MEDS ORDERED: DIVALPROEX SODIUM 500MG ER TABLET PO SCH (09:00)
[2020-08-26] MEDS: VIMPAT 200 MG PO SCH ×2 (09:41→17:38)
[2020-08-26] MEDS: CARBAMAZEPINE 200 MG PO SCH ×2 (09:41→20:42)
[2020-08-26] MEDS: CEFTRIAXONE 1,000 MG in DEXTROSE 5% WATER 50 ML IV SCH (10:14)
[2020-08-26] MEDS ORDERED: HYDROCODONE/ACETAMINOPHEN 5/325MG TABLET PO PRN (13:45)
[2020-08-26] MEDS: DIVALPROEX SODIUM 500MG DR TABLET PO SCH ×2 (17:38→20:42)
[2020-08-26] MEDS: FAMOTIDINE 20MG TABLET PO SCH (20:42)
[2020-08-27] VITALS: BP 90/46
[2020-08-27 04:00] VITALS: BP 89/41
[2020-08-27 08:00] VITALS: BP 115/52
[2020-08-27] MEDS: VIMPAT 200 MG PO SCH ×2 (09:23→17:29)
[2020-08-27] MEDS: FAMOTIDINE 20MG TABLET PO SCH ×2 (09:23→21:02)
[2020-08-27] MEDS: CARBAMAZEPINE 200 MG PO SCH (09:24)
[2020-08-27] MEDS: CEFTRIAXONE 1,000 MG in DEXTROSE 5% WATER 50 ML IV SCH (11:43)
[2020-08-27 12:00] VITALS: BP 115/47
[2020-08-27] MEDS: ACETAMINOPHEN 325MG TABLET PO PRN (15:23)
[2020-08-27 16:00] VITALS: BP 125/78
[2020-08-27 16:20] LABS: BASOPHILS % 0.8 % (0.0-2.0); EOSINOPHILS % 5.8 % (0.0-5.0); HEMATOCRIT. 36.9 % (36.0-48.0); HEMOGLOBIN. 12.1 g/dL (12.0-16.0); LYMPHOCYTES % 35.7 % (20.0-50.0); MEAN CORPUSCULAR HEMOGLOBIN 30.9 pg (28.0-32.0); MEAN CORPUSCULAR VOLUME 94.7 fL (81.0-99.0); MEAN PLATELET VOLUME 10.3 fl (7.4-10.4); MONOCYTES % 10.5 % (2.0-8.0); NEUTROPHILS % 47.2 % (40.0-76.0); PLATELET 201 x1000/uL (130-400); RED CELL DISTRIBUTION WIDTH 15.2 % (11.6-14.6)
[2020-08-27 16:30] LABS: CHLORIDE 104 mEq/L (98-107)
[2020-08-27] MEDS: DIVALPROEX SODIUM 500MG DR TABLET PO SCH ×2 (17:31→21:02)
[2020-08-27] MEDS ORDERED: SORBITOL 70% SOLN 30ML PO PRN (17:45)
[2020-08-27 20:00] VITALS: BP 129/77
[2020-08-27 20:30] LABS: CARBAMAZEPINE 12.1 ug/mL (4-12)
[2020-08-27] MEDS ORDERED: LACTULOSE 20G/30ML UDC PO SCH (21:00)
[2020-08-28] VITALS: BP 129/59
[2020-08-28] MEDS: ACETAMINOPHEN 325MG TABLET PO PRN (00:51)
[2020-08-28 04:00] VITALS: BP 101/55
[2020-08-28 08:00] VITALS: BP 106/55
[2020-08-28] MEDS ORDERED: POLYETHYLENE GLYCOL 3350 (17GM) 1 DOSE PACK PO SCH (09:00)
[2020-08-28] MEDS ORDERED: DOCUSATE SODIUM 250MG CAPSULE PO SCH (09:00)
[2020-08-28] MEDS: FAMOTIDINE 20MG TABLET PO SCH (09:24)
[2020-08-28] MEDS: CEFTRIAXONE 1,000 MG in DEXTROSE 5% WATER 50 ML IV SCH (11:03)
[2020-08-28] MEDS: VIMPAT 200 MG PO SCH (11:03)
[2020-08-28 12:00] VITALS: BP 105/70
[2020-08-28] MEDS ORDERED: CEPH-569 MT (14:50)
[2020-08-28 15:28] VITALS: BP 105/78
[2020-08-28 16:00] VITALS: BP 108/83
== END 2020-08-28 16:41 | disposition home or self-care (01) | DRG 241 ==
LOC: ER 13:45 → MICUSO 21:20 → 6EST 08-25 07:25
PROVIDERS: ADMIT Internal Medicine; ATTEND Internal Medicine
DX: K29.70 Gastritis, unspecified, without bleeding (principal); N39.0 Urinary tract infection, site not specified; N12 Tubulo-interstitial nephritis, not specified as acute or chronic; G90.8 Other disorders of autonomic nervous system; G40.909 Epilepsy, unspecified, not intractable, without status epilepticus; I27.20 Pulmonary hypertension, unspecified; D72.819 Decreased white blood cell count, unspecified; I10 Essential (primary) hypertension; I25.10 Atherosclerotic heart disease of native coronary artery without angina pectoris; M48.02 Spinal stenosis, cervical region; G95.89 Other specified diseases of spinal cord; Z88.5 Allergy status to narcotic agent; Z88.8 Allergy status to other drugs, medicaments and biological substances; Z79.891 Long term (current) use of opiate analgesic; Z79.899 Other long term (current) drug therapy; Z90.710 Acquired absence of both cervix and uterus; I69.354 Hemiplegia and hemiparesis following cerebral infarction affecting left non-dominant side; B96.20 Unspecified Escherichia coli [E. coli] as the cause of diseases classified elsewhere
CPT/HCPCS: 36415; 70544; 70553; 71045; 74018; 74177; 80048; 80053; 80156; 80165; 81003; 83605; 84484; 85025; 86850; 86900; 87077; 87186; 93005; 93970; 96365; 97162; 97166; 97530; 97535; 99285; J0696; J7060; Q9967

== ENCOUNTER 2021-08-20 11:32 | Emergency (ER) | payer MEDICAID ==
[~2021-08-20] VITALS: Ht 160 cm; Wt 68.0 kg
[~2021-08-20 11:32] MED LIST changes: +CEPH-569 MT
[2021-08-20] MEDS ORDERED: ONDANSETRON HCL 4MG/2ML INJ IV ONE (12:45)
[2021-08-20] MEDS ORDERED: SODIUM CHLORIDE 0.9% 1,000 ML IV ONE (12:45)
[2021-08-20 13:08] LABS: BASOPHILS % 0.7 % (0.0-2.0); EOSINOPHILS % 9.7 % (0.0-5.0); HEMATOCRIT. 35.5 % (36.0-48.0); HEMOGLOBIN. 12.1 g/dL (12.0-16.0); LYMPHOCYTES % 45.3 % (20.0-50.0); MEAN CORPUSCULAR HEMOGLOBIN 31.2 pg (28.0-32.0); MEAN CORPUSCULAR VOLUME 91.5 fL (81.0-99.0); MEAN PLATELET VOLUME 10.1 fl (7.4-10.4); MONOCYTES % 9.1 % (2.0-8.0); NEUTROPHILS % 35.2 % (40.0-76.0); PLATELET 214 x1000/uL (130-400); RED BLOOD CELL COUNT 3.88 mill/uL (4.2-5.4); RED CELL DISTRIBUTION WIDTH 13.8 % (11.6-14.6)
[2021-08-20 13:11] LABS: CLARITY URINE CLEAR (CLEAR); COLOR URINE YELLOW (YELLOW); KETONES URINE NEGATIVE (NEGATIVE); LEUKOCYTE ESTERASE URINE NEGATIVE (NEGATIVE); NITRITE URINE NEGATIVE (NEGATIVE); OCCULT BLOOD URINE NEGATIVE (NEGATIVE); PH URINE 7.5 (4.5-8.0); PROTEIN URINE NEGATIVE (NEGATIVE); SPECIFIC GRAVITY URINE 1.018 (1.005-1.030); UROBILINOGEN URINE 0.2 E.U./dL (0.2-1.0)
[2021-08-20 13:17] LABS: CHLORIDE 106 mEq/L (98-107)
[2021-08-20 13:33] LABS: INR 1.1; PROTHROMBIN TIME 11.9 sec (9.6-11.0)
[2021-08-20] MEDS ORDERED: MAGNESIUM/ALUMINUM HYDROXIDE/SIMETHICONE 30ML UDC PO STA (14:24)
[2021-08-20] MEDS ORDERED: VISCOUS LIDOCAINE 2% 15 ML UDC PO STA (14:24)
[2021-08-20] MEDS ORDERED: PANTOPRAZOLE SODIUM 40 MG/VIAL IV ONE (14:30)
[2021-08-20] MEDS ORDERED: DICY20TA11 MT (15:01)
[2021-08-20] MEDS ORDERED: ONDA4TAB11 PO (15:01)
[2021-08-20] MEDS ORDERED: DICYCLOMINE HCL 10MG CAPSULE PO ONE (15:30)
[2021-08-20 16:00] VITALS: BP 129/69
== END 2021-08-20 16:03 | disposition home or self-care (01) ==
LOC: ER 11:32
DX: R10.30 Lower abdominal pain, unspecified (principal); R19.7 Diarrhea, unspecified; R11.10 Vomiting, unspecified; G40.909 Epilepsy, unspecified, not intractable, without status epilepticus; I69.352 Hemiplegia and hemiparesis following cerebral infarction affecting left dominant side; I25.10 Atherosclerotic heart disease of native coronary artery without angina pectoris; Z98.890 Other specified postprocedural states; Z88.8 Allergy status to other drugs, medicaments and biological substances
CPT/HCPCS: 36415; 70450; 74176; 80053; 81003; 83690; 85025; 85610; 96360; 96361; 99285; C9113; J7030; Z7610; J2405